=== PATIENT | male | born 1970 | race Caucasian/White ===

== ENCOUNTER 2021-08-02 08:02 | Outpatient (REF) | payer MEDICAID, SELFPAY ==
--- NOTE | ~2021-08-02 | FL_ITS ---
EXAMINATION: FL BARIUM SWALLOW CLINICAL INFORMATION: Dysphagia COMPARISON: None TECHNIQUE: Barium swallow examination is performed using fluoroscopic evaluation in addition to multiple fluoroscopic spot views. The patient is imaged both upright and prone and using both thick and thin sulfate along with effervescent granules. Barium tablet was also administered. Fluoroscopy time: 1.5 minutes DAP: 11.4 Gycm2 Images: 49 FINDINGS: Exam is limited as the patient had difficulty drinking the barium. The swallowing mechanism is normal. No aspiration or penetration is seen. Esophageal motility is normal. There is a small sliding-type hiatal hernia. There is question of a fixed stricture at the GE junction versus prominent Schatzki ring. There is stasis of the barium tablet in this region. There is gastroesophageal reflux. There is mucosal irregularity of the esophagus questionable for esophagitis. FL/FL barium swallow IMPRESSION: Small sliding-type hiatal hernia. Question stricture at the GE junction versus prominent Schatzki ring. Gastroesophageal reflux and question mild esophagitis. Endoscopic correlation recommended.
== END 2021-08-02 08:03 | disposition home or self-care (01) ==
LOC: HO.XRAY 08:02
PROVIDERS: PCP Family Medicine; Visit Provider Family Medicine
DX: R47.02 Dysphasia (principal)
CPT/HCPCS: 74220

== ENCOUNTER 2022-07-25 15:24 | Outpatient (REF) | payer MEDICAID, SELFPAY ==
--- NOTE | ~2022-07-25 | US_ITS ---
EXAMINATION: US SCROTUM CLINICAL INFORMATION: History of indurated mass, left testicle. COMPARISON: None TECHNIQUE: A sonogram of the scrotum was performed assessing bernstein-scale appearance and color Doppler flow. Spectral Doppler analysis of the arterial and venous flow were performed in the testes bilaterally. FINDINGS: RIGHT: Right testicle measures 3.99 x 1.89 x 3.51 cm, volume 13.9 mL. No focal testicular parenchymal lesions are visualized. Spectral Doppler analysis of the arterial and venous flow is normal in the right testis. Right epididymal head is normal in size. There is a 7 x 6 x 8 mm right epididymal head cyst. There is a 7 x 3 x 5 mm epididymal body cyst. Right epididymal Doppler flow is normal. There is a small complex hydrocele. There is a small varicocele. LEFT: Left testicle measures 3.98 x 1.68 x 3.04 cm, volume 10.7 mL. There are 2 left peripheral testicular cysts. There is a 1.0 x 0.8 x 0.8 cm cyst with thin septation and a 3 x 2 x 2 mm simple cyst. There is a large peripheral calcification in the testicle measuring 6 x 2 x 5 mm. No other focal testicular lesion. Spectral Doppler analysis of the arterial and venous flow is normal in the left testis. Left epididymal head is normal in size. There are left epididymal calcifications. There are left scrotal calcifications. There is a small complex left hydrocele. There is a left varicocele. Left epididymal Doppler flow is normal. US/US scrotum IMPRESSION: Bilateral small complex hydroceles. Left scrotal calcifications or scrotal pearls. This may be related to old infection or trauma. 2 left testicular cysts. Bilateral epididymal head cysts. Small bilateral varicoceles.
== END 2022-07-25 15:25 | disposition home or self-care (01) ==
LOC: HO.HMGCX 15:24
PROVIDERS: PCP Family Medicine; Visit Provider Family Medicine
DX: N50.89 Other specified disorders of the male genital organs (principal)
CPT/HCPCS: 76870

== ENCOUNTER 2024-10-05 09:28 | Outpatient (REF) | payer MEDICAID, SELFPAY ==
[2024-10-05 14:34] LABS: MANUAL DIFF FLAG NO
[2024-10-05 14:40] LABS: Basophils Percent Auto 0.5 % (0-2); Eosinophils Absolute Auto 0.1 X10*3/uL (0.0-0.4); Eosinophils Percent Auto 1.8 % (0-4); Hematocrit 42.9 % (42.0-52.0); Hemoglobin 14.1 g/dl (14.0-18.0); Imm Gran Abs Auto 0.04 X10*3/uL (0.00-0.03); Imm Gran Pct Auto 0.5 % (0.0-0.4); Lymphocytes Absolute Auto 2.1 X10*3/uL (1.2-4.9); Lymphocytes Percent Auto 27.1 % (20-40); Mean Corpuscular HGB Conc 32.9 g/dl (31.0-36.0); Mean Corpuscular Hemoglobin 28.7 pg (27.0-33.0); Mean Corpuscular Volume 87.2 fL (80.0-98.0); Mean Platelet Volume 10.3 fL (9.4-12.4); Monocytes Absolute Auto 0.7 X10*3/uL (0.1-1.2); Monocytes Percent Auto 9.4 % (2-11); Neutrophils Absolute Auto 4.7 x10*3/uL (2.0-8.3); Neutrophils Percent Auto 60.7 % (45-73); Platelet Count 313 X10*3/uL (160-400); Red Blood Count 4.92 X10*6/uL (4.60-5.80); Red Cell Distribution Width 12.7 % (11.0-16.0); White Blood Count 7.8 X10*3/uL (4.8-10.8)
[2024-10-05 14:54] LABS: Alanine Aminotransferase 21 U/L (0-40); Albumin Level 4.1 g/dL (3.5-5.0); Alkaline Phosphatase 99 U/L (39-117); Anion Gap 12 (12-20); Aspartate Amino Transferase 32 U/L (5-37); Bilirubin Total 0.5 mg/dL (0.0-1.0); Blood Urea Nitrogen 11 mg/dL (9-16); Calcium 9.5 mg/dL (8.4-10.2); Carbon Dioxide 26 mmol/L (22-29); Chloride 108 mmol/L (96-108); Cholesterol 166 mg/dL (<200); Estimated Glomerular Filt Rate > 60; Glucose Random 87 mg/dL (60-115); HDL Cholesterol 38 mg/dL (>40); LDL Cholesterol Calculated 108 mg/dL (<100); Potassium 4.1 mmol/L (3.3-5.1); Sodium 142 mmol/L (135-145); Total Protein 7.1 g/dL (6.5-8.0); Triglycerides 104 mg/dL (<150)
[2024-10-05 15:11] LABS: TSH reflex Free T4 0.62 uIU/mL (0.32-4.0)
[2024-10-06 03:59] LABS: HIV AB/AG Nonreactive (Nonreactive); HIV Num 1 0.07 S/CO (0.00-0.99)
== END 2024-10-05 09:29 | disposition home or self-care (01) ==
LOC: HO.CHCLDS 09:28
PROVIDERS: Visit Provider Family Medicine
DX: E66.811 Obesity, class 1 (principal)
CPT/HCPCS: 36415; 80053; 80061; 84443; 85025; 87389